=== PATIENT | female | born 1935 | race Caucasian/White ===

== ENCOUNTER 2016-06-23 14:52 | Inpatient (IN) ==
[2016-06-23] MEDS ORDERED: HYDROmorphone 2 MG/1 ML VIAL IV STA (15:28)
[2016-06-23] MEDS ORDERED: ONDANSETRON 4 MG/2 ML VIAL IV STA (15:28)
[2016-06-23] MEDS ORDERED: HYDROmorphone 2 MG/1 ML VIAL ONE (15:30)
[2016-06-23] MEDS ORDERED: ONDANSETRON 4 MG/2 ML VIAL ONE (15:30)
--- NOTE | 2016-06-23 15:32 | Emergency Department Note ---
Arrival - Arrival Chief Complaint: Fall Stated Complaint: Fall ED Nursing Triage Note: Brought in by EMS c/o left hip pain s/p fall two days ago. +external rotation. PMS intact. Mode of Arrival: Stretcher Limitations: No Limitations Source: Patient Time Seen by Provider: 06/23/16 15:20 - History of Present Illness HPI Narrative: The patient complains of left hip and upper leg pain since slipping and falling 2 days ago. She denies loss of consciousness or any other injury. She has not been able to ambulate on it since the fall. Date of Last Menstrual Period: menopause Allergies/Adverse Reactions: Allergies Allergy/AdvReac Type Severity Reaction Status Date / Time No Known Allergies Allergy Verified 06/23/16 15:16 Home Medications: Home Medications Medication Instructions Recorded Confirmed Type Alendronate Sodium 70 mg PO MO 06/23/16 06/23/16 History Aspirin EC Tab 81 mg PO DAILY 06/23/16 06/23/16 History Levothyroxine Tab [Synthroid Tab] 88 mcg PO DAILY 06/23/16 06/23/16 History Ondansetron HCl 8 mg PO Q8H PRN 06/23/16 06/23/16 History Paroxetine HCl [Paxil] 30 mg PO DAILY 06/23/16 06/23/16 History clonazePAM TAB [KlonoPIN] 0.5 mg PO BID 06/23/16 06/23/16 History metFORMIN [Glucophage] 500 mg PO DAILY 06/23/16 06/23/16 History Review of System - Review of System 12 point system: reviewed and no additional remarkable complaints except as stated - Review of System Musculoskeletal: Present: leg pain Medical,Surgical,& Family Hx - Medical History Endocrine: History of: Diabetes Mellitus (NIDDM), Thyroid Disorder - Surgical History Surgical History: noncontributory - Family History Family History: noncontributory - Social History Smoking Status: Current every day smoker Frequency of Alcohol Use: None Type of Drug Use: None Exam Physical Examination: GENERAL: Alert. No acute distress. HEENT: Normocephalic and atraumatic. There is a skin graft to the left temporal parietal area. PERRLA. EOMI. There is no nasal drainage. No pharyngeal erythema or exudate. NECK: Normal inspection. Full range of motion without evidence of pain. LUNGS: No respiratory distress. Few sparse wheezes bilaterally. HEART: Regular rate and rhythm. ABDOMEN: Soft, nontender and nondistended with normoactive bowel sounds. BACK: Normal inspection. SKIN: Color normal. Warm and dry. EXTREMITIES: Pelvis is stable. There is diffuse tenderness over the left hip. No ecchymosis, swelling or obvious deformity. The left lower extremity is externally rotated and the patient has hip pain on rotation. There is no shortening. The knee is nontender but the patient will tolerate little range of motion testing due to pain in the hip with range of motion. The distal extremity is neurovascularly intact. No edema. NEUROLOGICAL/PSYCHIATRIC: Alert and oriented 3 with normal mood and affect. Cranial nerves normal. No motor or sensory deficit. Vital Signs: Vital Signs Temperature 98 F 06/23/16 15:00 Pulse Rate 100 H 06/23/16 17:00 Respiratory Rate 13 06/23/16 17:00 Blood Pressure 99/63 06/23/16 17:00 O2 Sat by Pulse Oximetry 97 06/23/16 17:00 Course - Reevaluation(s) Reevaluation #1: I have discussed the patient with Dr. Thomas and the hospitalist service. The hospitalist will admit and Dr. Thomas will plan to do surgery tomorrow. Time: 18:23 Results - Labs CBC & BMP: 06/23/16 17:20 06/23/16 17:20 - Impressions X-ray of the left hip shows a mildly displaced intertrochanteric hip fracture. Chest x-ray shows mild right basilar atelectasis. Disposition Clinical Impression: Intertrochanteric fracture of left hip Case discussed with: patient, patient's family Disposition: Still a Patient Condition: Stable Time of Disposition: 16:58
--- NOTE | 2016-06-23 15:53 | XRay Report ---
History: Hip pain after fall Date: 06/23/2016 Study: Left hip 3 views Comparison exam: No previous hip x-rays There is a minimally displaced comminuted intertrochanteric fracture of the left hip with excellent alignment. Osteopenia. Impression: Acute intertrochanteric fracture left hip PROCEDURE INTERPRETED AT [facility] DEPARTMENT OF RADIOLOGY Final Report Signed by: Dr. Emily Arauz
--- NOTE | 2016-06-23 16:19 | XRay Report ---
History: Respiratory preop evaluation. Hip fracture after fall Date: 06/23/2016 Study: Chest x-ray single view Comparison exam: No previous The cardiac silhouette is upper normal. There is no mediastinal mass. The pulmonary vasculature is not engorged. There is some stranding and hazy atelectasis/infiltrate right lung base. The lungs and pleural spaces are otherwise clear. There is no acute osseous abnormality Impression: Mild atelectatic change right lung base PROCEDURE INTERPRETED AT [facility] DEPARTMENT OF RADIOLOGY Final Report Signed by: Dr. Emily Arauz
[2016-06-23 17:27] LABS: Basophils # 0.1 10*3/uL (0.0-0.2); Basophils % 0.4 % (0.0-0.8); Eosinophils # 0.1 10*3/uL (0.0-0.87); Eosinophils % 0.8 % (0.00-10.9); Hematocrit 33.4 VOL% (35.7-47.0); Hemoglobin 11.1 GM/DL (12.0-16.0); Immature Granulocytes % 0.7 %; Immature Granulocytes Absolute 0.08 #; Lymphocytes # 2.2 10*3/uL (1.4-4.0); Lymphocytes % 18.3 % (21.3-54.2); Mean Corpuscular HGB Conc 33.2 GM/DL (32-36); Mean Corpuscular Hemoglobin 33 PG (27-34); Mean Corpuscular Volume 97.9 FL (87-102); Mean Platelet Volume 9.5 FL (9.6-12.0); Monocytes # 1.1 10*3/uL (0.11-0.8); Monocytes % 9.6 % (1.7-12.7); Neutrophils # 8.3 10*3/uL (1.4-7.4); Neutrophils % 70.2 % (38.7-73.9); Platelet Count 247 T/CUMM (130-400); Red Blood Count 3.41 MC/CUMM (3.8-5.5); Red Cell Distribution Width 12.8 % (9.3-17.3); White Blood Count 11.8 T/CUMM (4-12)
--- NOTE | 2016-06-23 17:27 | EKG Report ---
Stationary ECG Study [facility] ER Test Date: 06/23/2016 5:26:14 PM Pat Name: KOSTA ELLIOTT Department: Room: 320 Gender: F [employer] Rental Clerk: TEDDY : 1935 Requested by: Russell Figueroa Order Number: [id number] Reading MD: QIANA BURNS Intervals [place] Rate: 99 P: 69 CA: 152 QRS: 25 QRSD: 83 T: 33 QT: 375 QTc: 431 Interpretive Statements SINUS RHYTHM NONSPECIFIC T-WAVE ABNORMALITY Electronically Signed On 06-25-16 06:35:18 CDT by QIANA BURNS [email or web address]
[2016-06-23 18:01] LABS: Calcium 8.3 MG/DL (8.5-10.1); Osmolality,Calculated 284.4 MOS/KG (273-304); Potassium 4.4 MMOL/L (3.5-5.1)
--- NOTE | 2016-06-23 18:25 | Hospitalist History & Physical ---
<Felipe Fofana - Last Filed: 06/23/16 18:35> Assessment and Plan (1) Intertrochanteric fracture of left hip Status: Acute Assessment and plan: Consult orthopedic surgery Current Visit: Yes (2) Urinary retention Status: Acute Assessment and plan: UA obtained. Urology consulted to place rowan Current Visit: Yes (3) COPD (chronic obstructive pulmonary disease) Status: Acute Assessment and plan: duonebs ordered. Current Visit: Yes History of Present Illness Chief complaint: hip pain History of present illness: Ms. Page is a 80 year old white female patient with a hx of smoking, dm, and htn, that presented to the ER today via EMS for complaints of hip pain. Patient 's son at bedside states the patient had a fall at home 2 days ago where she twisted her hip as she fell. Patient stated the EMS was called out at that time however the paramedics had examined the patient stated that her hip was not broken. Patient's pain increased over the last 2 days she came in today for evaluation. Hip x-ray showed acute intertrochanteric fracture of left hip. Son also reports foul smelling urine. Nurses tried to place rowan in ED but were unsuccessful. The patient will be admitted to the hospitalist service and the orthopedic surgeon has been consulted to see patient. Urology consulted for urinary retention. Home Medications Medication Instructions Recorded Confirmed Type Alendronate Sodium 70 mg PO MO 06/23/16 06/23/16 History Aspirin EC Tab 81 mg PO DAILY 06/23/16 06/23/16 History Levothyroxine Tab [Synthroid Tab] 88 mcg PO DAILY 06/23/16 06/23/16 History Ondansetron HCl 8 mg PO Q8H PRN 06/23/16 06/23/16 History Paroxetine HCl [Paxil] 30 mg PO DAILY 06/23/16 06/23/16 History clonazePAM TAB [KlonoPIN] 0.5 mg PO BID 06/23/16 06/23/16 History metFORMIN [Glucophage] 500 mg PO DAILY 06/23/16 06/23/16 History Allergies Allergy/AdvReac Type Severity Reaction Status Date / Time No Known Allergies Allergy Verified 06/23/16 15:16 Medical,Surgical,& Family Hx - Medical History Endocrine: History of: Diabetes Mellitus (NIDDM), Thyroid Disorder - Family History Family History: Reports;: Family Diabetes - Social History Smoking Status: Current every day smoker Frequency of Alcohol Use: None Type of Drug Use: None Marital Status: Single Lives With:: Sibling Functional capacity: independent ambulation - Constitutional Constitutional: Present: weakness. Absent: frequent falls - EENT Eyes: Absent: loss of vision Ears: Present: decreased hearing Nose, mouth and throat: Absent: dysphagia, headache(s) - Cardiovascular Cardiovascular: Absent: chest pain at rest, edema - Respiratory Respiratory: Present: cough. Absent: hemoptysis - Gastrointestinal Gastrointestinal: Present: abdominal pain. Absent: change in bowel habits, nausea - Genitourinary Genitourinary: Present: other (abdomia). Absent: difficulty urinating, hematuria - Neurological Neurological: Present: abnormal gait (due to hip pain). Absent: headache(s) - Psychiatric Psychiatric: Present: other (pt lethargic d/t pain meds) - Endocrine Endocrine: Present: fatigue - Hematologic/Lymphatic Hematologic/Lymphatic: Absent: easy bleeding Exam - Constitutional Vitals: Period Temp Pulse Resp BP Sys/Patino Pulse Ox Last 24 Hr 98 F-98.0 F 88-102 12-20 99-143/63-85 94-98 General appearance: normal weight, no acute distress, other (lethargic) - Head Head exam: Present: normal inspection, normocephalic - Eye Eye exam: Present: EOMI Pupils: Present: KANDIS. Absent: constricted - Neck Neck exam: Present: normal inspection - Respiratory Respiratory exam: Present: wheezes - Cardiovascular Cardiovascular exam: Present: regular rate and rhythm - GI/Abdominal GI/Abdominal exam: Present: normal bowel sounds, distended, tenderness, soft - Extremities Exam Extremities exam: Present: normal capillary refill. Absent: full ROM, edema - Neurological Exam Neurological exam: Present: oriented X3. Absent: alert - Psychiatric Psychiatric exam: Present: other (pt. lethargic due to pain meds) - Skin Skin exam: Present: warm, dry, other (recent removal of skin ca to left forehead.) Results - Labs CBC & BMP: 06/23/16 17:20 06/23/16 17:20 Lab Results: I have reviewed the past 24 hour labs <Elzbieta Carranza - Last Filed: 06/24/16 08:04> Assessment and Plan (1) COPD (chronic obstructive pulmonary disease) Status: Acute Assessment and plan: duoneb, steroids Current Visit: No (2) Intertrochanteric fracture of left hip Status: Acute Assessment and plan: clear for surgery Current Visit: Yes (3) Urinary retention Status: Acute Current Visit: Yes History of Present Illness History of present illness: Ms. Page is a 80 year old female Medical,Surgical,& Family Hx - Surgical History Additional Surgical History: none - Psychiatric Psychiatric: Present: depression. Absent: anxiety - Hematologic/Lymphatic Hematologic/Lymphatic: Absent: easy bruising Exam - Constitutional Vitals: Period Temp Pulse Resp BP Sys/Patino Pulse Ox Last 24 Hr 97.8 F-100.9 F 78-108 13-20 96-138/59-77 93-98 - Eye Eye exam: Absent: scleral icterus Results - Labs CBC & BMP: 06/24/16 03:39 06/24/16 03:39 - EKG EKG shows: sinus rhythm - Diagnostic Findings Procedure: Chest x-ray: report reviewed by me (atelectasis), X-ray: report reviewed by me (left hip fx)
[2016-06-23 18:44] LABS: Apearance,Urine CLOUDY (Clear); Bacteria,Urine Occasional /HPF (Few); Bilirubin,Urine Negative (Negative); Blood, Urine Negative (Negative); Glucose,Urine (UA) 50 mg/dL (Negative); Hyaline Casts,Urine 10 /LPF (0-3); Ketones,Urine Negative (Negative); Mucus,Urine Occasional /LPF (Occasional); Nitrite,Urine Negative (Negative); Protein,Urine 30 MG/DL; RBC,Urine 3 /HPF (0-4); Squamous Epithelial Cell,Urine Occasional /HPF (0-10); Urine Color Amber (Yellow); Urine Specific Gravity 1.015 (1.001-1.035); Urine Urobilinogen < 2.0 EU/DL (0.2-1.0); WBC,Urine 15 /HPF (0-6)
[2016-06-23] MEDS: ALBUTEROL/IPRATROPIUM 3 ML NEB RESP TX SCH ×2 (19:00→23:42)
[2016-06-23] MEDS ORDERED: ACETAMINOPHEN 325 MG TABLET PO PRN (20:27)
[2016-06-23] MEDS ORDERED: MORPHINE 2 MG/1 ML SYRINGE IV PRN (20:27)
[2016-06-23] MEDS ORDERED: DEXTROSE 50% 25 GM/50 ML VIAL IV PRN (20:27)
[2016-06-23] MEDS ORDERED: ONDANSETRON 4 MG/2 ML VIAL IV PRN (20:27)
[2016-06-23] MEDS ORDERED: GLUCAGON 1 MG VIAL IM PRN (20:27)
--- NOTE | 2016-06-23 20:57 | Orthopedic Consult Note ---
History of Present Illness Chief complaint: left hip fx History of present illness: Ms. Page is a 80 year old female who fell 2 days ago. She was initially evaluated by the paramedics who felt that she did not have a hip fracture. Because of persistent pain and inability to ambulate she presented to the emergency room today. She denies any previous problems. She lives at home with her daughter's family. She is an independent ambulator. She denies any other injury. Home Medications Medication Instructions Recorded Confirmed Type Alendronate Sodium 70 mg PO MO 06/23/16 06/23/16 History Aspirin EC Tab 81 mg PO DAILY 06/23/16 06/23/16 History Levothyroxine Tab [Synthroid Tab] 88 mcg PO DAILY 06/23/16 06/23/16 History Ondansetron HCl 8 mg PO Q8H PRN 06/23/16 06/23/16 History Paroxetine HCl [Paxil] 30 mg PO DAILY 06/23/16 06/23/16 History clonazePAM TAB [KlonoPIN] 0.5 mg PO BID 06/23/16 06/23/16 History metFORMIN [Glucophage] 500 mg PO DAILY 06/23/16 06/23/16 History Allergies Allergy/AdvReac Type Severity Reaction Status Date / Time No Known Allergies Allergy Verified 06/23/16 15:16 ROS unobtainable: due to mental status Medical,Surgical,& Family Hx - Medical History Endocrine: History of: Diabetes Mellitus (NIDDM), Thyroid Disorder - Family History Family History: Reports;: Family Diabetes - Social History Smoking Status: Current every day smoker Frequency of Alcohol Use: None Type of Drug Use: None Exam - Constitutional Vitals: Period Temp Pulse Resp BP Sys/Patino Pulse Ox Last 24 Hr 93-104 13-20 96-132/64-77 93-98 Mildly sedated. Patient is able to give a limited history and follows commands. Spine, bilateral upper and right lower extremity without acute deformity or tenderness. Left lower extremity is without deformity. She can flex and extend her toes and ankles. Sensation is grossly intact to light touch. She has a 2+ dorsalis pedis pulse. She is very irritable to logroll. Hip x-rays demonstrate a left nondisplaced intertrochanteric hip fracture. Impression: Left intertrochanteric hip fracture Plan: I have advised open reduction fixation. I have discussed the risks and benefits as well as the postoperative course. All questions were answered. Risks include but not limited to infection, bleeding, anesthesia, thromboembolic event, , need for further surgery, etc. Results - Labs CBC & BMP: 06/23/16 17:20 06/23/16 17:20
[2016-06-23] MEDS: SODIUM CHLORIDE 0.9% 1,000 ML IV SCH (21:38)
[2016-06-23] MEDS: methylPREDNISolone SOD SUC 40 MG/1 ML VIAL IV SCH (21:38)
[2016-06-23] MEDS: INSULIN LISPRO 100 UNIT/ML SUBCUT SCH (21:38)
[2016-06-24] MEDS: ALBUTEROL/IPRATROPIUM 3 ML NEB RESP TX SCH ×5 (02:31→19:36)
[2016-06-24 04:39] LABS: Basophils % 0.3 % (0.0-0.8); Hematocrit 32.4 VOL% (35.7-47.0); Hemoglobin 10.5 GM/DL (12.0-16.0); Immature Granulocytes % 0.6 %; Immature Granulocytes Absolute 0.06 #; Lymphocytes # 0.9 10*3/uL (1.4-4.0); Lymphocytes % 9.8 % (21.3-54.2); Mean Corpuscular HGB Conc 32.4 GM/DL (32-36); Mean Corpuscular Hemoglobin 32 PG (27-34); Mean Corpuscular Volume 99.1 FL (87-102); Mean Platelet Volume 10.1 FL (9.6-12.0); Monocytes # 0.1 10*3/uL (0.11-0.8); Monocytes % 1.2 % (1.7-12.7); Neutrophils # 8.4 10*3/uL (1.4-7.4); Neutrophils % 88.1 % (38.7-73.9); Platelet Count 253 T/CUMM (130-400); Red Blood Count 3.27 MC/CUMM (3.8-5.5); Red Cell Distribution Width 12.7 % (9.3-17.3); White Blood Count 9.5 T/CUMM (4-12)
[2016-06-24 05:11] LABS: Calcium 8.6 MG/DL (8.5-10.1); Osmolality,Calculated 289.3 MOS/KG (273-304); Potassium 4.7 MMOL/L (3.5-5.1)
[2016-06-24] MEDS ORDERED: HYDROmorphone 2 MG/1 ML VIAL IV PRN ×2 (05:41→10:43)
[2016-06-24] MEDS ORDERED: ONDANSETRON 4 MG/2 ML VIAL IV PRN ×2 (05:41→10:43)
[2016-06-24] MEDS ORDERED: ALBUTEROL/IPRATROPIUM 3 ML NEB RESP TX ONE (06:00)
[2016-06-24] MEDS ORDERED: FAMOTIDINE 20 MG TABLET PO ONE (06:00)
[2016-06-24] MEDS: SODIUM CHLORIDE 0.9% 1,000 ML IV SCH (06:48)
[2016-06-24] MEDS: methylPREDNISolone SOD SUC 40 MG/1 ML VIAL IV SCH ×3 (06:48→21:34)
--- NOTE | 2016-06-24 07:29 | Orthopedic Progress Note ---
Orthopedics - Subjective Interval history: No new complaints. Alert and oriented. Left lower extremity exam is unchanged. Plan: Proceed with open reduction fixation later today. Exam - Constitutional Vitals: Period Temp Pulse Resp BP Sys/Patino Pulse Ox Last 24 Hr 97.8 F-100.9 F 78-108 13-20 96-138/59-77 93-98 Results - Labs CBC & BMP: 06/24/16 03:39 06/24/16 03:39
[2016-06-24] MEDS: LEVOTHYROXINE 88 MCG TABLET PO SCH (07:59)
[2016-06-24] MEDS ORDERED: PROPOFOL 200 MG/20 ML VIAL IV ONE (09:05)
[2016-06-24] MEDS ORDERED: LIDOCAINE 1% 5 ML VIAL ONE (09:05)
[2016-06-24] MEDS ORDERED: ONDANSETRON 4 MG/2 ML VIAL ONE (09:05)
[2016-06-24] MEDS ORDERED: MORPHINE 2 MG/1 ML SYRINGE IV PRN (09:18)
--- NOTE | 2016-06-24 09:27 | Operative Note ---
Procedure: DIAGNOSIS: Left hip intertrochanteric fracture PROCEDURE: Left ORIF hip (CPT# 33542) SURGEON: Martha ANESTHESIA: LMA general PROCEDURE and FINDINGS: After adequate anesthesia was induced, the patient was placed on the fracture table. A provisional reduction was obtained. The limb was prepped and draped in the usual sterile fashion. Lateral approach to the proximal femur was made. Skin, subcutaneous tissue and iliotibial band were incised. Vastus lateralis was elevated from the intramuscular septum and lateral aspect of the femur. Guidepin was placed, overreamed, and tapped. 85 mm hip screw was placed followed by a 130 degree 2 hole plate. Screw holes were filled. Wound was irrigated. Iliotibial band was repaired with O Vicryl [id number] sutures. Subcutaneous tissues were repaired deep with 2-0 Vicryl runner and superficially with 3-0 interrupted Vicryl suture. [place] were used to approximate the skin. Sterile occlusive dressing and bacitracin were applied. Image intensification was used throughout the procedure. EBL: Minimal Surgeon / Physician: Garth Thomas Jr. Results - Labs CBC & BMP: 06/24/16 03:39 06/24/16 03:39 Discharge Plan - Discharge Medications No Action clonazePAM TAB [KlonoPIN] 0.5 mg PO BID metFORMIN [Glucophage] 500 mg PO DAILY Levothyroxine Tab [Synthroid Tab] 88 mcg PO DAILY Paroxetine HCl [Paxil] 30 mg PO DAILY Aspirin EC Tab 81 mg PO DAILY Ondansetron HCl 8 mg PO Q8H PRN PRN Reason: Nausea Alendronate Sodium 70 mg PO MO - Follow Up or Referral - Forms/Instructions
[2016-06-24] MEDS ORDERED: TRANEXAMIC ACID 1,000 MG/10 ML VIAL IV ONE (09:46)
[2016-06-24] MEDS ORDERED: MIDAZOLAM 2 MG/2 ML VIAL ONE (10:56)
[2016-06-24] MEDS ORDERED: SEVOFLURANE 1 UNIT/15 MINUTE INH ONE (10:56)
[2016-06-24] MEDS ORDERED: ACETAMINOPHEN 1,000 MG/100 ML VIAL IV ONE (10:56)
[2016-06-24] MEDS ORDERED: fentaNYL 100 MCG/2 ML VIAL ONE (10:56)
[2016-06-24] MEDS ORDERED: LACTATED RINGERS 1,000 ML IV SCH (11:00)
--- NOTE | 2016-06-24 11:00 | Hospitalist Progress Note ---
Assessment and Plan (1) Intertrochanteric fracture of left hip Status: Acute Current Visit: Yes (2) Urinary retention Status: Acute Current Visit: Yes (3) Urinary tract infection Status: Acute Assessment and plan: Starting Rocephin Current Visit: Yes Hospitalist: Subjective Interval history: Admitted overnight with hip fracture. Seen this morning before surgery. Pain is a little better. Exam - Constitutional Vitals: Period Temp Pulse Resp BP Sys/Patino Pulse Ox Last 24 Hr 97.8 F-100.9 F 78-115 13-115 96-174/59-93 93-100 General appearance: over weight - Head Head exam: Present: normocephalic, atraumatic - Eye Eye exam: Present: conjunctival injection Pupils: Present: KANDIS - ENT ENT exam: Present: normal exam - Neck Neck exam: Present: normal inspection. Absent: tenderness - Respiratory Respiratory exam: Present: clear to auscultation bilaterally. Absent: rhonchi, wheezes - Cardiovascular Cardiovascular exam: Present: regular rate and rhythm - GI/Abdominal GI/Abdominal exam: Present: normal bowel sounds, soft. Absent: distended, tenderness - Back Exam Back exam: Present: normal inspection - Neurological Exam Neurological exam: Present: alert, oriented X3 - Psychiatric Psychiatric exam: Present: normal affect, normal mood - Skin Skin exam: Present: warm, intact Results - Labs CBC & BMP: 06/24/16 03:39 06/24/16 03:39
--- NOTE | 2016-06-24 11:23 | Anesthesia ---
Anesthesia Post OP - Post Ansesthetic Evaluation Patient seen in post op: Yes Resp: within normal limits CV: within normal limits Mental: within normal limits Temp: within normal limits [id number]: within normal limits Nausea and Vomiting: within normal limits Pain: within normal limits
[2016-06-24] MEDS: INSULIN LISPRO 100 UNIT/ML SUBCUT SCH ×4 (11:44→21:34)
[2016-06-24] MEDS: PARoxetine 20 MG TABLET PO SCH (12:16)
[2016-06-24] MEDS: LACTATED RINGERS 1,000 ML IV SCH ×2 (12:16→23:13)
[2016-06-24] MEDS: PANTOPRAZOLE 40 MG TABLET PO SCH (12:16)
[2016-06-24] MEDS: KETOROLAC 15 MG/1 ML VIAL IV SCH ×3 (12:17→21:34)
[2016-06-24] MEDS: ACETAMINOPHEN 500 MG TABLET PO SCH ×2 (13:25→19:09)
--- NOTE | 2016-06-24 14:48 | XRay Report ---
History: Left hip fracture undergoing ORIF Date: 06/24/2016 Study: AP and frog-leg lateral views left hip performed during surgery Comparison exam: Left hip x-ray 06/23/2016 Compression screw and plate stabilize an intertrochanteric fracture of the left hip with near anatomic alignment and positioning. 25 seconds fluoroscopy time was utilized by Dr. Thomas. Impression: Satisfactory alignment and positioning of the intertrochanteric fracture left hip status post ORIF PROCEDURE INTERPRETED AT [facility] DEPARTMENT OF RADIOLOGY Final Report Signed by: Dr. Emily Arauz
[2016-06-24] MEDS: DOCUSATE SODIUM 100 MG CAPSULE PO SCH (21:34)
[2016-06-24 23:44] LABS: Apearance,Urine CLOUDY (Clear); Bacteria,Urine Occasional /HPF (Few); Bilirubin,Urine Negative (Negative); Blood, Urine Negative (Negative); Glucose,Urine (UA) >=500 mg/dL (Negative); Ketones,Urine Negative (Negative); Mucus,Urine Occasional /LPF (Occasional); Nitrite,Urine Negative (Negative); Protein,Urine Negative; RBC,Urine 3 /HPF (0-4); Squamous Epithelial Cell,Urine Occasional /HPF (0-10); Urine Color Yellow (Yellow); Urine Specific Gravity 1.021 (1.001-1.035); Urine Urobilinogen < 2.0 EU/DL (0.2-1.0); WBC,Urine 11 /HPF (0-6)
[2016-06-25] MEDS: ALBUTEROL/IPRATROPIUM 3 ML NEB RESP TX SCH ×6 (00:51→19:51)
[2016-06-25] MEDS: ACETAMINOPHEN 500 MG TABLET PO SCH ×2 (00:55→06:49)
[2016-06-25] MEDS: KETOROLAC 15 MG/1 ML VIAL IV SCH (03:11)
[2016-06-25] MEDS ORDERED: ENOXAPARIN 30 MG/0.3 ML SYRINGE SUBCUT SCH (03:20)
[2016-06-25 06:19] LABS: Hematocrit 26.1 VOL% (35.7-47.0); Hemoglobin 8.5 GM/DL (12.0-16.0); Immature Granulocytes % 0.8 %; Immature Granulocytes Absolute 0.08 #; Lymphocytes # 0.8 10*3/uL (1.4-4.0); Lymphocytes % 8.1 % (21.3-54.2); Mean Corpuscular HGB Conc 32.6 GM/DL (32-36); Mean Corpuscular Hemoglobin 32 PG (27-34); Mean Corpuscular Volume 98.1 FL (87-102); Mean Platelet Volume 10.1 FL (9.6-12.0); Monocytes # 0.4 10*3/uL (0.11-0.8); Monocytes % 3.7 % (1.7-12.7); Neutrophils # 8.7 10*3/uL (1.4-7.4); Neutrophils % 87.4 % (38.7-73.9); Platelet Count 232 T/CUMM (130-400); Red Blood Count 2.66 MC/CUMM (3.8-5.5); Red Cell Distribution Width 13.2 % (9.3-17.3)
[2016-06-25 06:47] LABS: Osmolality,Calculated 296.1 MOS/KG (273-304); Potassium 4.9 MMOL/L (3.5-5.1)
[2016-06-25] MEDS: LACTATED RINGERS 1,000 ML IV SCH (06:49)
[2016-06-25] MEDS: FONDAPARINUX 2.5 MG/0.5 ML SYRINGE SUBCUT SCH (06:49)
[2016-06-25] MEDS: LEVOTHYROXINE 88 MCG TABLET PO SCH (06:49)
--- NOTE | 2016-06-25 08:23 | Orthopedic Progress Note ---
Orthopedics - Subjective Interval history: Comfortable. Feels better. dressing dry. nv ok lle. Mobilize with therapy. Stop iv fluids. TMR placement. Exam - Constitutional Vitals: Period Temp Pulse Resp BP Sys/Patino Pulse Ox Last 24 Hr 98.1 F-99.9 F 91-119 12-115 87-174/48-93 91-105 Results - Labs CBC & BMP: 06/25/16 05:51 06/25/16 05:51
[2016-06-25] MEDS: INSULIN LISPRO 100 UNIT/ML SUBCUT SCH ×4 (09:15→21:05)
[2016-06-25] MEDS: PARoxetine 20 MG TABLET PO SCH (09:16)
[2016-06-25] MEDS: DOCUSATE SODIUM 100 MG CAPSULE PO SCH ×2 (09:16→21:06)
[2016-06-25] MEDS: PANTOPRAZOLE 40 MG TABLET PO SCH (09:17)
--- NOTE | 2016-06-25 09:52 | Hospitalist Progress Note ---
<EdilbertoNadia - Last Filed: 06/25/16 09:52> Assessment and Plan (1) Intertrochanteric fracture of left hip Status: Acute Assessment and plan: Continue PT/OT and VTE prophylaxis as previously ordered. Will consult CM for swing bed placement at discharge. Current Visit: Yes (2) COPD (chronic obstructive pulmonary disease) Status: Acute Assessment and plan: Will obtain CXR for chest wall tenderness. Encouraged to continue IS use 10x every hour. Current Visit: No Qualifiers: COPD type: unspecified COPD Qualified Code(s): J44.9 - Chronic obstructive pulmonary disease, unspecified (3) Urinary tract infection Status: Acute Assessment and plan: Continue ceftriaxone as previously ordered; start bladder training for removal of rowan catheter. Current Visit: Yes Hospitalist: Subjective Interval history: Patient seen and examined. No acute overnight events reported. Post-operative day 1 s/p ORIF of left hip. Exam - Constitutional Vitals: Period Temp Pulse Resp BP Sys/Patino Pulse Ox Last 24 Hr 98.1 F-99.9 F 91-119 12-115 87-174/48-93 91-105 General appearance: normal weight, no acute distress - Head Head exam: Present: normal inspection - Eye Eye exam: Present: EOMI Pupils: Present: KANDIS - ENT ENT exam: Present: normal exam - Neck Neck exam: Present: normal inspection - Respiratory Respiratory exam: Present: chest wall tenderness (reports tenderness upon expiration), decreased breath sounds - Cardiovascular Cardiovascular exam: Present: regular rate and rhythm, tachycardia. Absent: carotid bruit, diastolic murmur, gallop, JVD, rubs, systolic murmur - GI/Abdominal GI/Abdominal exam: Present: normal bowel sounds, soft - Extremities Exam Extremities exam: Present: normal inspection, full ROM (ROM limited secondary to L ORIF) - Back Exam Back exam: Present: normal inspection - Neurological Exam Neurological exam: Present: alert, oriented X3, CN II-XII intact - Psychiatric Psychiatric exam: Present: normal affect - Skin Skin exam: Present: dry Results - Labs CBC & BMP: 06/25/16 05:51 06/25/16 05:51 Lab Results: I have reviewed the past 24 hour labs <Vivi Miller - Last Filed: 06/25/16 10:17> Assessment and Plan (1) Intertrochanteric fracture of left hip Status: Acute Current Visit: Yes (2) Urinary retention Status: Acute Current Visit: Yes (3) Urinary tract infection Status: Acute Current Visit: Yes Hospitalist: Subjective Interval history: Patient seen and examined along with DEACON Casanova, agree with history, assessment and plan as documented Exam - Constitutional Vitals: Period Temp Pulse Resp BP Sys/Patino Pulse Ox Last 24 Hr 98.1 F-99.9 F 91-119 12-115 87-174/48-93 91-105 Results - Labs CBC & BMP: 06/25/16 05:51 06/25/16 05:51
[2016-06-25] MEDS ORDERED: Alendronate Sodium [Alendronate Sodium] 70 MG PO SCH (10:15)
--- NOTE | 2016-06-25 10:38 | XRay Report ---
History: Chest wall discomfort. Recent fall with hip fracture Date: 06/25/2016 Study: Chest x-ray AP portable Comparison exam: June 23, 2016 There is continued cardiomegaly. The pulmonary vasculature is slightly prominent. There is no mediastinal mass. The pulmonary vasculature is slightly prominent. There is some mild atelectatic change in the right lower lobe, increased compared to the previous study. There is also some increasing subsegmental atelectasis in the left base. There is mild bilateral pleural effusion. Osseous structures are unchanged. Impression: Increasing right greater than left bibasilar atelectasis compared to the previous study. Cardiomegaly and suspected mild CHF PROCEDURE INTERPRETED AT [facility] DEPARTMENT OF RADIOLOGY Final Report Signed by: Dr. Emily Arauz
[2016-06-25] MEDS: cefTRIAXone 1,000 MG in SODIUM CHLORIDE 0.9% 100 ML IV SCH (13:34)
[2016-06-25] MEDS: INSULIN NPH 100 UNIT/ML SUBCUT SCH (18:43)
[2016-06-25] MEDS: clonazePAM 0.5 MG TABLET PO SCH (21:05)
[2016-06-26] MEDS: ALBUTEROL/IPRATROPIUM 3 ML NEB RESP TX SCH ×7 (00:07→23:57)
[2016-06-26] MEDS: FONDAPARINUX 2.5 MG/0.5 ML SYRINGE SUBCUT SCH (05:40)
[2016-06-26 07:13] LABS: Basophils % 0.2 % (0.0-0.8); Eosinophils # 0.1 10*3/uL (0.0-0.87); Hematocrit 30.6 VOL% (35.7-47.0); Hemoglobin 9.6 GM/DL (12.0-16.0); Immature Granulocytes % 0.6 %; Immature Granulocytes Absolute 0.06 #; Lymphocytes # 1.9 10*3/uL (1.4-4.0); Lymphocytes % 18.4 % (21.3-54.2); Mean Corpuscular HGB Conc 31.4 GM/DL (32-36); Mean Corpuscular Hemoglobin 32 PG (27-34); Mean Corpuscular Volume 101.3 FL (87-102); Mean Platelet Volume 9.7 FL (9.6-12.0); Monocytes # 0.8 10*3/uL (0.11-0.8); Monocytes % 7.4 % (1.7-12.7); Neutrophils # 7.6 10*3/uL (1.4-7.4); Neutrophils % 72.4 % (38.7-73.9); Platelet Count 292 T/CUMM (130-400); Red Blood Count 3.02 MC/CUMM (3.8-5.5); Red Cell Distribution Width 13.4 % (9.3-17.3); White Blood Count 10.5 T/CUMM (4-12)
[2016-06-26] MEDS: INSULIN LISPRO 100 UNIT/ML SUBCUT SCH ×4 (08:29→22:08)
[2016-06-26] MEDS: LEVOTHYROXINE 88 MCG TABLET PO SCH (08:31)
[2016-06-26] MEDS: INSULIN NPH 100 UNIT/ML SUBCUT SCH ×2 (08:40→17:53)
[2016-06-26] MEDS: PARoxetine 20 MG TABLET PO SCH (08:41)
[2016-06-26] MEDS: DOCUSATE SODIUM 100 MG CAPSULE PO SCH ×2 (08:41→22:07)
[2016-06-26] MEDS: clonazePAM 0.5 MG TABLET PO SCH ×2 (08:41→22:07)
[2016-06-26] MEDS: PANTOPRAZOLE 40 MG TABLET PO SCH (08:42)
--- NOTE | 2016-06-26 09:27 | Orthopedic Progress Note ---
Orthopedics - Subjective Interval history: Comfortable. Feeling better. Dressing dry. Left lower extremity neurovascularly intact. Plan: May discharge to [facility] any time with me. Follow-up appointment in 4 weeks. Weightbearing as tolerated with walker protection. Daily dry dressing changes. CARLITO fry July 05, 2015. Continue Arixtra while at [facility]. Exam - Constitutional Vitals: Period Temp Pulse Resp BP Sys/Patino Pulse Ox Last 24 Hr 97.8 F-99.4 F 86-103 16-20 99-133/51-78 91-99 Results - Labs CBC & BMP: 06/26/16 06:47 06/25/16 05:51
[2016-06-26] MEDS: MAGNESIUM HYDROXIDE SUSP 30 ML UDCUP PO PRN ×2 (10:09→22:08)
--- NOTE | 2016-06-26 10:24 | Hospitalist Progress Note ---
Assessment and Plan (1) Intertrochanteric fracture of left hip Status: Acute Current Visit: Yes Hospitalist: Subjective Interval history: 80 yo female with left hip fracture repaired 24 June. Pyuria but cultures negative, initial difficulty with bladder catheterization. 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 She is anticipated to continue physical therapy at [facility]. Exam - Constitutional Vitals: Period Temp Pulse Resp BP Sys/Patino Pulse Ox Last 24 Hr 97.8 F-99.4 F 86-103 16-20 99-140/51-79 91-99 General appearance: normal weight - Respiratory Respiratory exam: Present: clear to auscultation bilaterally. Absent: rales, rhonchi, wheezes - Cardiovascular Cardiovascular exam: Present: regular rate and rhythm - GI/Abdominal GI/Abdominal exam: Present: normal bowel sounds. Absent: tenderness - Extremities Exam Extremities exam: Absent: edema - Neurological Exam Neurological exam: Present: alert, oriented X3 Results - Labs CBC & BMP: 06/26/16 06:47 06/25/16 05:51 Specialty Discharge - Follow Up or Referrals Follow up with: Garth Thomas Jr., MD [Physician] - 07/24/16 12:50 pm (4 weeks)
[2016-06-26] MEDS: cefTRIAXone 1,000 MG in SODIUM CHLORIDE 0.9% 100 ML IV SCH (13:12)
[2016-06-27 02:59] LABS: Basophils % 0.5 % (0.0-0.8); Eosinophils # 0.2 10*3/uL (0.0-0.87); Eosinophils % 2.7 % (0.00-10.9); Hemoglobin 9.5 GM/DL (12.0-16.0); Immature Granulocytes % 0.4 %; Immature Granulocytes Absolute 0.03 #; Lymphocytes # 2.1 10*3/uL (1.4-4.0); Lymphocytes % 26.4 % (21.3-54.2); Mean Corpuscular HGB Conc 32.8 GM/DL (32-36); Mean Corpuscular Hemoglobin 32 PG (27-34); Mean Corpuscular Volume 97.6 FL (87-102); Mean Platelet Volume 9.8 FL (9.6-12.0); Monocytes # 0.8 10*3/uL (0.11-0.8); Monocytes % 9.8 % (1.7-12.7); Neutrophils # 4.9 10*3/uL (1.4-7.4); Neutrophils % 60.2 % (38.7-73.9); Platelet Count 280 T/CUMM (130-400); Red Blood Count 2.97 MC/CUMM (3.8-5.5); White Blood Count 8.1 T/CUMM (4-12)
[2016-06-27] MEDS: ALBUTEROL/IPRATROPIUM 3 ML NEB RESP TX SCH ×4 (03:50→14:28)
[2016-06-27] MEDS: LEVOTHYROXINE 88 MCG TABLET PO SCH (06:50)
[2016-06-27] MEDS: FONDAPARINUX 2.5 MG/0.5 ML SYRINGE SUBCUT SCH (06:50)
--- NOTE | 2016-06-27 07:29 | Hospitalist Progress Note ---
Assessment and Plan (1) Intertrochanteric fracture of left hip Status: Acute Assessment and plan: Surgical repair June 24. Current Visit: Yes Hospitalist: Subjective Interval history: 80 yo female with left hip fracture repaired 24 June. 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 Doing well with physical therapy. Exam - Constitutional Vitals: Period Temp Pulse Resp BP Sys/Patino Pulse Ox Last 24 Hr 98.3 F-99.7 F 89-106 18-20 112-140/67-79 91-99 General appearance: normal weight - Respiratory Respiratory exam: Present: clear to auscultation bilaterally, rales, rhonchi, wheezes - Cardiovascular Cardiovascular exam: Present: regular rate and rhythm - GI/Abdominal GI/Abdominal exam: Present: normal bowel sounds - Extremities Exam Extremities exam: Absent: edema - Neurological Exam Neurological exam: Present: alert, oriented X3 Results - Labs CBC & BMP: 06/27/16 02:14 06/25/16 05:51 Specialty Discharge - Follow Up or Referrals Follow up with: Garth Thomas Jr., MD [Physician] - 07/24/16 12:50 pm (4 weeks)
--- NOTE | 2016-06-27 07:32 | Orthopedic Progress Note ---
Orthopedics - Subjective Interval history: comfortable. lle nv ok. dressing dry. mobilize with therapy. May discharge to R anytime from my standpoint. Exam - Constitutional Vitals: Period Temp Pulse Resp BP Sys/Patino Pulse Ox Last 24 Hr 98.3 F-99.7 F 89-106 18-20 112-140/67-79 91-99 Results - Labs CBC & BMP: 06/27/16 02:14 06/25/16 05:51 Specialty Discharge - Follow Up or Referrals Follow up with: Garth Thomas Jr., MD [Physician] - 07/24/16 12:50 pm (4 weeks)
[2016-06-27] MEDS: INSULIN LISPRO 100 UNIT/ML SUBCUT SCH ×2 (08:34→12:53)
[2016-06-27] MEDS: INSULIN NPH 100 UNIT/ML SUBCUT SCH (10:12)
[2016-06-27] MEDS: clonazePAM 0.5 MG TABLET PO SCH (10:13)
[2016-06-27] MEDS: PARoxetine 20 MG TABLET PO SCH (10:13)
[2016-06-27] MEDS: DOCUSATE SODIUM 100 MG CAPSULE PO SCH (10:13)
[2016-06-27] MEDS: PANTOPRAZOLE 40 MG TABLET PO SCH (10:13)
[2016-06-27 12:12] VITALS: BP 128/70
[2016-06-27] MEDS: cefTRIAXone 1,000 MG in SODIUM CHLORIDE 0.9% 100 ML IV SCH (13:40)
--- NOTE | 2016-06-27 13:45 | Discharge Summary ---
Hospital Course - Hospital Course Hospital Course: 80 yo female type2 diabetes mellitus, emphysema sustained a left hip fracture. ORIF performed without complication June 24. She is to be released for rehabilitation services today. Diagnosis - Discharge Diagnosis (1) Intertrochanteric fracture of left hip Status: Acute Specialty Discharge - Follow Up or Referrals Follow up with: Garth Thomas Jr., MD [Physician] - 07/24/16 12:50 pm (4 weeks) Discharge Plan - Discharge Data Disposition: Disch/Xfer-Ip Rehab Fac Condition at Discharge: Stable Discharge Diet: diabetic diet Activity: as per physical therapy - Discharge Medications Continue clonazePAM TAB [KlonoPIN] 0.5 mg PO BID metFORMIN [Glucophage] 500 mg PO DAILY Levothyroxine Tab [Synthroid Tab] 88 mcg PO DAILY Paroxetine HCl [Paxil] 30 mg PO DAILY Aspirin EC Tab 81 mg PO DAILY Ondansetron HCl 8 mg PO Q8H PRN PRN Reason: Nausea Alendronate Sodium 70 mg PO MO - Follow Up or Referral Follow Up: Garth Thomas Jr., MD [Physician] - 07/24/16 12:50 pm (4 weeks) - Forms/Instructions Instructions: Hip Fracture (GEN) Exam - Constitutional Vitals: Period Temp Pulse Resp BP Sys/Patino Pulse Ox Last 24 Hr 98.3 F-99.7 F 70-106 16-20 112-138/67-76 86-99 Discharge Results Procedures and tests throughout hospitalization: Pending Orders 06/28/16 04:00 BMP [Basic Metabolic Panel] IN AM Labs on day of discharge: Labs from last 24 hours 06/27/16 06/27/16 06/27/16 11:52 07:22 02:14 WBC 8.1 RBC 2.97 L Hgb 9.5 L Hct 29.0 L MCV 97.6 MCH 32 MCHC 32.8 RDW 13.0 Plt Count 280 MPV 9.8 Neut % (Auto) 60.2 Lymph % (Auto) 26.4 [place] % (Auto) 9.8 Eos % (Auto) 2.7 Baso % (Auto) 0.5 Neut # (Auto) 4.9 Lymph # (Auto) 2.1 [place] # (Auto) 0.8 Eos # (Auto) 0.2 Baso # (Auto) 0.0 Immature Gran % 0.4 Nucleated RBC % 0.0 Immature Gran # 0.03 Nucleated RBCs # 0.00 POC Glucose 144 H 107 H 06/26/16 06/26/16 20:10 15:55 WBC RBC Hgb Hct MCV MCH MCHC RDW Plt Count MPV Neut % (Auto) Lymph % (Auto) [place] % (Auto) Eos % (Auto) Baso % (Auto) Neut # (Auto) Lymph # (Auto) [place] # (Auto) Eos # (Auto) Baso # (Auto) Immature Gran % Nucleated RBC % Immature Gran # Nucleated RBCs # POC Glucose 161 H 94 DS: Provider Date of admission: 06/23/16 18:22 Primary care physician: . No PCP Attending physician on admission: Vivi Miller MD Consults: 06/23/16 20:32 Consult to Pharmacy [CONS] Routine Reason for Pharmacy Consult: Adjust Meds Renal Funct 06/24/16 09:18 Consult to Case Mgmt/Social Srvs [CONS] Routine Reason for Case Mgmt/Social Srvs: Rehab Home Health Equipment Consult Comment: Bedside Commode, CPM, Walker Consult to Occupational Therapy [CONS] Routine Reason for Occupational Therapy: Evaluate and Treat Consult Comment: ADL's Consult to Physical Therapy [CONS] Routine Reason for Physical Therapy: Evaluate and Treat Gait Training Consult Comment: wbat with walker 06/25/16 09:59 Consult to Case Mgmt/Social Srvs [CONS] Routine Reason for Case Mgmt/Social Srvs: Rehab Other Swingbed/SNF/Prison Discharging clinician: Sridhar Gaytan MD Expected date of discharge: 06/27/16
== END 2016-06-27 15:01 | DRG 481 ==
LOC: EDBD 14:52 → N.ED 14:52 → N.EDINP 18:22 → SUATTDRO 18:22 → N.EDINP 19:42 → N.3E 20:09
PROVIDERS: ADMIT Internal Medicine; ATTEND Internal Medicine Cardiovascular Disease

== ENCOUNTER 2020-02-13 15:24 | Inpatient (IN) ==
[2020-02-13] MEDS ORDERED: ONDANSETRON 4 MG/2 ML VIAL IV PRN (19:33)
[2020-02-13] MEDS ORDERED: DEXTROSE 50% 25 GM/50 ML VIAL IV PRN ×2 (19:33)
[2020-02-13] MEDS ORDERED: ACETAMINOPHEN 325 MG TABLET PO PRN (19:33)
[2020-02-13] MEDS ORDERED: GLUCAGON 1 MG VIAL IM PRN ×2 (19:33)
[2020-02-13] MEDS ORDERED: NICOTINE 21 MG/24 HR PATCH TRANSDERM PRN (19:33)
[2020-02-13] MEDS ORDERED: FUROSEMIDE 20 MG/2 ML VIAL IV ONE (19:45)
[2020-02-13] MEDS ORDERED: POTASSIUM CHLORIDE 20 MEQ TABLET PO ONE (19:46)
[2020-02-13] MEDS ORDERED: CITALOPRAM 40 MG TABLET PO SCH (21:00)
[2020-02-13] MEDS ORDERED: INSULIN REGULAR 100 UNIT/ML SUBCUT SCH (21:00)
[2020-02-13] MEDS: ENOXAPARIN 30 MG/0.3 ML SYRINGE SUBCUT SCH (21:25)
[2020-02-13] MEDS: metFORMIN 500 MG TABLET PO SCH (21:27)
[2020-02-13] MEDS: INSULIN LISPRO 100 UNIT/ML SUBCUT SCH (21:32)
[2020-02-13] MEDS: BUDESONIDE/FORMOTEROL 160-4.5 INHALER 6 GM INH SCH (22:10)
[2020-02-13] MEDS: PANTOPRAZOLE 40 MG TABLET PO SCH (22:10)
[2020-02-14] MEDS: ALBUTEROL 2.5 MG/3 ML NEB RESP TX SCH ×4 (01:30→19:14)
[2020-02-14] MEDS: LEVOTHYROXINE 88 MCG TABLET PO SCH (05:58)
[2020-02-14 07:12] LABS: Basophils % 0.3 % (0.0-0.8); Hematocrit 33.5 VOL% (35.7-47.0); Hemoglobin 11.3 GM/DL (12.0-16.0); Immature Granulocytes % 0.3 %; Immature Granulocytes Absolute 0.02 #; Lymphocytes # 1.3 10*3/uL (1.4-4.0); Lymphocytes % 21.1 % (21.3-54.2); Mean Corpuscular HGB Conc 33.7 GM/DL (32-36); Mean Corpuscular Volume 96.3 FL (87-102); Mean Platelet Volume 9.4 FL (9.6-12.0); Monocytes % 10.4 % (1.7-12.7); Neutrophils % 67.9 % (38.7-73.9); Platelet Count 274 T/CUMM (130-400); Red Blood Count 3.48 MC/CUMM (3.8-5.5); Red Cell Distribution Width 12.5 % (9.3-17.3); White Blood Count 6.1 T/CUMM (4-12)
[2020-02-14 07:35] LABS: Bilirubin,Total 0.7 MG/DL (0.2-1.0); Calcium 8.8 MG/DL (8.5-10.1); Osmolality,Calculated 280.7 MOS/KG (273-304); Risk Ratio 3.52; Total Protein 7.1 G/DL (6.4-8.3)
[2020-02-14] MEDS: INSULIN LISPRO 100 UNIT/ML SUBCUT SCH ×4 (07:46→21:38)
[2020-02-14] MEDS: BUDESONIDE/FORMOTEROL 160-4.5 INHALER 6 GM INH SCH ×2 (09:01→21:37)
[2020-02-14] MEDS: FLUTICASONE 50 MCG NASAL SPRAY 16 GM BOTTLE BOTH NARES SCH (09:01)
[2020-02-14] MEDS: ASPIRIN EC 81 MG TABLET PO SCH (09:01)
[2020-02-14] MEDS: PANTOPRAZOLE 40 MG TABLET PO SCH ×2 (09:01→21:38)
[2020-02-14] MEDS: metFORMIN 500 MG TABLET PO SCH ×2 (09:02→16:58)
[2020-02-14] MEDS: NICOTINE 21 MG/24 HR PATCH TRANSDERM SCH (15:50)
[2020-02-14] MEDS: AZITHROMYCIN INJ 500 MG in SODIUM CHLORIDE 0.9% 250 ML IV SCH (16:11)
[2020-02-14] MEDS: cefTRIAXone 2,000 MG in SYRINGE 1 EACH IV SCH (16:15)
[2020-02-14] MEDS: clonazePAM 0.5 MG TABLET PO SCH ×2 (16:58→21:37)
[2020-02-14 17:44] LABS: Bilirubin,Urine Negative (Negative); Blood, Urine Negative (Negative); Glucose,Urine (UA) Negative (Negative); Hyaline Casts,Urine 3 /LPF (0-3); Ketones,Urine Negative (Negative); Mucus,Urine Occasional /LPF (Occasional); Nitrite,Urine Negative (Negative); Protein,Urine Negative; RBC,Urine 1 /HPF (0-4); Urine Appearance CLEAR (Clear); Urine Color Yellow (Yellow); Urine Specific Gravity 1.042 (1.001-1.035); Urine Urobilinogen < 2.0 EU/DL (0.2-1.0); WBC,Urine 3 /HPF (0-6)
[2020-02-14] MEDS: buPROPion SR 100 MG TABLET PO SCH (21:37)
[2020-02-14] MEDS: ENOXAPARIN 30 MG/0.3 ML SYRINGE SUBCUT SCH (21:37)
[2020-02-15] MEDS: ALBUTEROL 2.5 MG/3 ML NEB RESP TX SCH ×4 (00:19→19:28)
[2020-02-15] MEDS: LEVOTHYROXINE 88 MCG TABLET PO SCH (05:47)
[2020-02-15 05:57] LABS: Basophils % 0.5 % (0.0-0.8); Eosinophils # 0.1 10*3/uL (0.0-0.87); Eosinophils % 0.8 % (0.00-10.9); Hematocrit 34.1 VOL% (35.7-47.0); Hemoglobin 11.2 GM/DL (12.0-16.0); Immature Granulocytes % 0.5 %; Immature Granulocytes Absolute 0.03 #; Lymphocytes # 1.8 10*3/uL (1.4-4.0); Lymphocytes % 27.1 % (21.3-54.2); Mean Corpuscular HGB Conc 32.8 GM/DL (32-36); Mean Corpuscular Volume 99.4 FL (87-102); Mean Platelet Volume 9.9 FL (9.6-12.0); Neutrophils % 64.1 % (38.7-73.9); Platelet Count 313 T/CUMM (130-400); Red Blood Count 3.43 MC/CUMM (3.8-5.5); Red Cell Distribution Width 12.9 % (9.3-17.3); White Blood Count 6.5 T/CUMM (4-12)
[2020-02-15 06:20] LABS: Calcium 8.9 MG/DL (8.5-10.1); Osmolality,Calculated 283.4 MOS/KG (273-304)
[2020-02-15 06:29] LABS: Thyroid Stimulating Hormone 0.13 uIU/ml (0.358-3.74)
[2020-02-15] MEDS: NICOTINE 21 MG/24 HR PATCH TRANSDERM SCH (09:47)
[2020-02-15] MEDS: INSULIN LISPRO 100 UNIT/ML SUBCUT SCH ×4 (09:47→21:29)
[2020-02-15] MEDS: metFORMIN 500 MG TABLET PO SCH ×2 (09:47→17:23)
[2020-02-15] MEDS: PANTOPRAZOLE 40 MG TABLET PO SCH ×2 (09:49→21:29)
[2020-02-15] MEDS: clonazePAM 0.5 MG TABLET PO SCH ×3 (09:49→21:29)
[2020-02-15] MEDS: buPROPion SR 100 MG TABLET PO SCH ×2 (09:49→21:29)
[2020-02-15] MEDS: BUDESONIDE/FORMOTEROL 160-4.5 INHALER 6 GM INH SCH ×2 (09:51→21:29)
[2020-02-15] MEDS: FLUTICASONE 50 MCG NASAL SPRAY 16 GM BOTTLE BOTH NARES SCH (09:51)
[2020-02-15] MEDS: CHOLECALCIFEROL 1,000 UNIT TABLET PO SCH (09:51)
[2020-02-15] MEDS: ASPIRIN EC 81 MG TABLET PO SCH (09:51)
[2020-02-15] MEDS: cefTRIAXone 2,000 MG in SYRINGE 1 EACH IV SCH (17:23)
[2020-02-15] MEDS: AZITHROMYCIN INJ 500 MG in SODIUM CHLORIDE 0.9% 250 ML IV SCH (17:24)
[2020-02-15] MEDS: ENOXAPARIN 30 MG/0.3 ML SYRINGE SUBCUT SCH (21:29)
[2020-02-16] MEDS: ALBUTEROL 2.5 MG/3 ML NEB RESP TX SCH ×4 (03:13→19:17)
[2020-02-16 05:26] LABS: Basophils % 0.5 % (0.0-0.8); Eosinophils # 0.1 10*3/uL (0.0-0.87); Eosinophils % 1.5 % (0.00-10.9); Hematocrit 31.2 VOL% (35.7-47.0); Hemoglobin 10.1 GM/DL (12.0-16.0); Immature Granulocytes % 0.5 %; Immature Granulocytes Absolute 0.03 #; Lymphocytes # 2.3 10*3/uL (1.4-4.0); Lymphocytes % 34.2 % (21.3-54.2); Mean Corpuscular HGB Conc 32.4 GM/DL (32-36); Mean Corpuscular Volume 99.7 FL (87-102); Mean Platelet Volume 9.6 FL (9.6-12.0); Monocytes % 9.8 % (1.7-12.7); Neutrophils % 53.5 % (38.7-73.9); Platelet Count 289 T/CUMM (130-400); Red Blood Count 3.13 MC/CUMM (3.8-5.5); Red Cell Distribution Width 12.9 % (9.3-17.3); White Blood Count 6.6 T/CUMM (4-12)
[2020-02-16] MEDS: LEVOTHYROXINE 88 MCG TABLET PO SCH (05:53)
[2020-02-16 05:54] LABS: Calcium 8.7 MG/DL (8.5-10.1); Osmolality,Calculated 281.4 MOS/KG (273-304)
[2020-02-16 06:03] LABS: Free T4 (Free Thyroxine) 1.22 NG/DL (0.76-1.46)
[2020-02-16] MEDS: INSULIN LISPRO 100 UNIT/ML SUBCUT SCH ×4 (09:30→21:22)
[2020-02-16] MEDS: BUDESONIDE/FORMOTEROL 160-4.5 INHALER 6 GM INH SCH ×2 (09:31→21:22)
[2020-02-16] MEDS: NICOTINE 21 MG/24 HR PATCH TRANSDERM SCH (09:31)
[2020-02-16] MEDS: FLUTICASONE 50 MCG NASAL SPRAY 16 GM BOTTLE BOTH NARES SCH (09:31)
[2020-02-16] MEDS: PANTOPRAZOLE 40 MG TABLET PO SCH ×2 (09:32→21:20)
[2020-02-16] MEDS: metFORMIN 500 MG TABLET PO SCH ×2 (09:32→17:43)
[2020-02-16] MEDS: CHOLECALCIFEROL 1,000 UNIT TABLET PO SCH (09:32)
[2020-02-16] MEDS: clonazePAM 0.5 MG TABLET PO SCH ×3 (09:32→21:20)
[2020-02-16] MEDS: MULTIVITAMIN (CENTRUM) TABLET PO SCH (09:32)
[2020-02-16] MEDS: ASPIRIN EC 81 MG TABLET PO SCH (09:32)
[2020-02-16] MEDS: buPROPion SR 100 MG TABLET PO SCH ×2 (10:39→21:20)
[2020-02-16] MEDS: cefTRIAXone 2,000 MG in SYRINGE 1 EACH IV SCH (17:43)
[2020-02-16] MEDS: AZITHROMYCIN INJ 500 MG in SODIUM CHLORIDE 0.9% 250 ML IV SCH (17:46)
[2020-02-16] MEDS: ENOXAPARIN 30 MG/0.3 ML SYRINGE SUBCUT SCH (21:20)
[2020-02-17] MEDS: ALBUTEROL 2.5 MG/3 ML NEB RESP TX SCH ×2 (02:04→07:25)
[2020-02-17 05:12] LABS: Basophils % 0.4 % (0.0-0.8); Eosinophils # 0.2 10*3/uL (0.0-0.87); Eosinophils % 2.1 % (0.00-10.9); Hematocrit 31.2 VOL% (35.7-47.0); Hemoglobin 10.3 GM/DL (12.0-16.0); Immature Granulocytes % 0.7 %; Immature Granulocytes Absolute 0.05 #; Lymphocytes # 2.1 10*3/uL (1.4-4.0); Lymphocytes % 29.1 % (21.3-54.2); Mean Corpuscular Volume 98.4 FL (87-102); Mean Platelet Volume 9.4 FL (9.6-12.0); Monocytes % 9.1 % (1.7-12.7); Neutrophils % 58.6 % (38.7-73.9); Platelet Count 274 T/CUMM (130-400); Red Blood Count 3.17 MC/CUMM (3.8-5.5); Red Cell Distribution Width 12.4 % (9.3-17.3)
[2020-02-17] MEDS: LEVOTHYROXINE 88 MCG TABLET PO SCH (05:24)
[2020-02-17 05:27] LABS: Calcium 8.9 MG/DL (8.5-10.1); Osmolality,Calculated 279.4 MOS/KG (273-304)
[2020-02-17] MEDS: INSULIN LISPRO 100 UNIT/ML SUBCUT SCH (08:43)
[2020-02-17] MEDS: NICOTINE 21 MG/24 HR PATCH TRANSDERM SCH (08:44)
[2020-02-17] MEDS: metFORMIN 500 MG TABLET PO SCH (08:45)
[2020-02-17] MEDS: buPROPion SR 100 MG TABLET PO SCH (08:45)
[2020-02-17] MEDS: PANTOPRAZOLE 40 MG TABLET PO SCH (08:46)
[2020-02-17] MEDS: clonazePAM 0.5 MG TABLET PO SCH (08:46)
[2020-02-17] MEDS: ASPIRIN EC 81 MG TABLET PO SCH (08:46)
[2020-02-17] MEDS: MULTIVITAMIN (CENTRUM) TABLET PO SCH (08:46)
[2020-02-17] MEDS: BUDESONIDE/FORMOTEROL 160-4.5 INHALER 6 GM INH SCH (08:46)
[2020-02-17] MEDS: CHOLECALCIFEROL 1,000 UNIT TABLET PO SCH (08:46)
[2020-02-17] MEDS: FLUTICASONE 50 MCG NASAL SPRAY 16 GM BOTTLE BOTH NARES SCH (08:46)
[2020-02-17] MEDS ORDERED: LEVOFLOXACIN 500 MG TABLET PO SCH (09:00)
[2020-02-17 12:39] VITALS: BP 118/73
== END 2020-02-17 13:15 | disposition home health service (06) | DRG 190 ==
LOC: N.TELEN → SUATTDRO 18:04
PROVIDERS: ADMIT Internal Medicine; ATTEND Hospitalist